=== PATIENT | male | born 1930 | race Caucasian/White ===

== ENCOUNTER → 2016-06-28 | Outpatient (REF) | payer MEDICARE, OTHER, MEDICAID ==
[2016-06-28 11:25] LABS: BLOOD UREA NITROGEN 12 MG/DL (7-18); CREATININE FOR GFR 0.86 MG/DL (0.70-1.30); GLOMERULAR FILTRATION RATE > 60.0 (>35)
== END ==
PROVIDERS: ATTEND Internal Medicine
DX: R10.30 Lower abdominal pain, unspecified (principal); R63.4 Abnormal weight loss

== ENCOUNTER → 2016-07-01 | Outpatient (CLI) | payer MEDICARE, OTHER, MEDICAID ==
[~2016-07-01] MED LIST: GASTROGRAFIN SOLUTION 30ML (Q9963) As Ordered ONE; ISOVUE-370 76% 100ML VIAL (Q9967) As Ordered ONE
--- NOTE | 2016-07-01 15:29 | REP ---
CT abdomen pelvis without and with IV contrast. With IV contrast, multiphase imaging is performed during the arterial phase of enhancement and again during the delayed equilibrium phase of enhancement. There are no comparison studies. The visualized lung barrett are unremarkable. The hepatic parenchyma, gallbladder, pancreas, spleen, adrenals and kidneys are unremarkable on all phases of the study. The bowel and mesentery are unremarkable. Pelvis: The appendix is unremarkable. The right iliac artery is quite tortuous. There is descending colon and sigmoid colon diverticulosis without diverticulitis. The bladder is unremarkable. There is no ascites or adenopathy. Half there is advanced degenerative disc disease throughout the lumbar spine. There is grade 1 wedge-shaped compression of the L1 vertebral body. Impression: Descending colon, sigmoid colon diverticulosis without diverticulitis. There is no bowel distension or obstruction. No ascites or adenopathy. There are no masses. There is lumbar scoliosis convex right, multilevel advanced lumbar spine degenerative disc disease and age indeterminate grade 1 wedge-shaped compression deformity of the L1 vertebral body. Signed by Jorge Pearson MD 07/01/2016 03:20 P
== END ==
LOC: M RAD 12:40
PROVIDERS: ATTEND Physician Assistant Medical
DX: R10.30 Lower abdominal pain, unspecified (principal); R63.4 Abnormal weight loss; K57.30 Diverticulosis of large intestine without perforation or abscess without bleeding; M41.46 Neuromuscular scoliosis, lumbar region
CPT/HCPCS: 74178; Q9963; Q9967

== ENCOUNTER → 2016-07-08 | Outpatient (REF) | payer MEDICARE, OTHER, MEDICAID ==
[~2016-07-08] MED LIST changes: +ACID1CAP PO; +ALBU17IN INH; +ANOR1AER INH; +COLA100C3 PO; +DONE1TAB3 PO; +DOXA1TAB40 PO; +FLON1SPR; +FURO20TA2 PO; -GASTROGRAFIN SOLUTION 30ML (Q9963) As Ordered ONE; +IMOD2CAP PO; -ISOVUE-370 76% 100ML VIAL (Q9967) As Ordered ONE; +LOPE2CA PO; +LOSA50TA20 PO; +MAGNSOL2 PO; +METO-346 PO; +MOBI7.5T10 PO; +NAME10TA PO; +NITR4TASL SL; +PANT40TA2 PO; +POTA10TA16 PO; +PROS5TAB PO; +STRO3TAB PO; +TUMS500C PO; +TYLE500T78 PO
== END ==
LOC: M SMT 16:57
PROVIDERS: ATTEND Nurse Practitioner Family
DX: R32 Unspecified urinary incontinence (principal)
CPT/HCPCS: 51798; 81001; 87086; G0463

== ENCOUNTER → 2016-08-11 | Outpatient (CLI) | payer MEDICARE, OTHER, MEDICAID ==
[~2016-08-11] VITALS: Ht 162.6 cm; Wt 104.3 kg
[~2016-08-11] MED LIST changes: +NS 1,000 ML IV ONE; +PROPOFOL 200 MG/20 ML VIAL As Ordered ONE; +ePHEDrine SULFATE 25 MG/5 ML(5MG/ML) SYRINGE As Ordered ONE
--- NOTE | 2016-08-11 08:23 | ROOR ---
Patient Name: Giovanny Hernández Procedure Date: 08/11/2016 8:11 AM Date of : 1930 Age: 85 Room: [facility] Gender: Male Note Status: Finalized Procedure: Upper GI endoscopy Indications: Epigastric abdominal pain, Heartburn Providers: Donaldo FRAZIER MD Referring MD: Ruby DE LA CRUZ NP Requesting Provider: Medicines: Monitored Anesthesia Care Complications: No immediate complications. Procedure: Pre-Anesthesia Assessment: - The heart rate, respiratory rate, oxygen saturations, blood pressure, adequacy of pulmonary ventilation, and response to care were monitored throughout the procedure. The Endoscope was introduced through the mouth, and advanced to the second part of duodenum. The upper GI endoscopy was accomplished without difficulty. The patient tolerated the procedure well. Findings: A large hiatal hernia was present. The esophagus was normal. The stomach was normal. The examined duodenum was normal. Impression: - Moderate to large hiatal hernia. - Normal esophagus. - Normal stomach. - Normal examined duodenum. - No specimens collected. Recommendation: - Observe patient's clinical course. - Continue present medications. Donaldo Frazier MD Donaldo FRAZIER MD 08/11/2016 8:23:11 AM This report has been signed electronically. Number of Addenda: 0 Note Initiated On: 08/11/2016 8:11 AM Estimated Blood Loss: Estimated blood loss: none.
--- NOTE | 2016-08-11 08:37 | ROOR ---
Patient Name: Giovanny Hernández Procedure Date: 08/11/2016 8:12 AM Date of : 1930 Age: 85 Room: [facility] Gender: Male Note Status: Finalized Procedure: Colonoscopy Indications: High risk colon cancer surveillance: Personal history of colonic polyps Providers: Donaldo FRAZIER MD Referring MD: Ruby DE LA CRUZ NP Requesting Provider: Medicines: Monitored Anesthesia Care Complications: No immediate complications. Procedure: Pre-Anesthesia Assessment: - The heart rate, respiratory rate, oxygen saturations, blood pressure, adequacy of pulmonary ventilation, and response to care were monitored throughout the procedure. The Colonoscope was introduced through the anus and advanced to the cecum, identified by appendiceal orifice and ileocecal valve. The colonoscopy was performed without difficulty. The patient tolerated the procedure well. The quality of the bowel preparation was good. Findings: The perianal and digital rectal examinations were normal. Internal hemorrhoids were found during retroflexion. The hemorrhoids were medium-sized. Multiple medium-mouthed diverticula were found in the sigmoid colon. The exam was otherwise without abnormality on direct and retroflexion views. Impression: - Internal hemorrhoids. - Moderate diverticulosis in the sigmoid colon. - The examination was otherwise normal on direct and retroflexion views. - No specimens collected. Recommendation: - No repeat colonoscopy due to the absence of colonic polyps. Donaldo Frazier MD Donaldo FRAZIER MD 08/11/2016 8:37:03 AM This report has been signed electronically. Number of Addenda: 0 Note Initiated On: 08/11/2016 8:12 AM Estimated Blood Loss: Estimated blood loss: none.
[2016-08-11 08:55] VITALS: BP 106/65
== END | disposition home or self-care (01) ==
LOC: M OPP 07:23
PROVIDERS: ATTEND Internal Medicine Gastroenterology
DX: R10.84 Generalized abdominal pain (principal); R19.4 Change in bowel habit; R63.4 Abnormal weight loss; K64.8 Other hemorrhoids; K57.30 Diverticulosis of large intestine without perforation or abscess without bleeding; Z86.010 Personal history of colon polyps; R10.13 Epigastric pain; R12 Heartburn; K44.9 Diaphragmatic hernia without obstruction or gangrene; F32.9 Major depressive disorder, single episode, unspecified; M19.90 Unspecified osteoarthritis, unspecified site; F03.90 Unspecified dementia, unspecified severity, without behavioral disturbance, psychotic disturbance, mood disturbance, and anxiety; N40.1 Benign prostatic hyperplasia with lower urinary tract symptoms; J44.9 Chronic obstructive pulmonary disease, unspecified; Z79.899 Other long term (current) drug therapy

== ENCOUNTER → 2016-11-21 | Outpatient (REF) | payer MEDICARE, OTHER, MEDICAID ==
[~2016-11-21] MED LIST changes: -COLA100C3 PO; +COLA100C5 PO; -DONE1TAB3 PO; +DONE1TAB62 PO; +MAGN1SOL2 PO; -MAGNSOL2 PO; +MOBI4TAB PO; -MOBI7.5T10 PO; -NS 1,000 ML IV ONE; -PROPOFOL 200 MG/20 ML VIAL As Ordered ONE; -ePHEDrine SULFATE 25 MG/5 ML(5MG/ML) SYRINGE As Ordered ONE
== END ==
LOC: M SMT 20:25
PROVIDERS: ATTEND Urology
DX: R30.0 Dysuria (principal)

== ENCOUNTER → 2017-07-14 | Outpatient (REF) | payer MEDICARE, OTHER, MEDICAID ==
[2017-07-14 10:01] LABS: HEMATOCRIT 44.2 % (42.0-52.0); HEMOGLOBIN 15.3 g/dl (13.5-17.5); MEAN CORPUSCULAR HEMOGLOBIN 31.4 pg (27.0-33.0); MEAN CORPUSCULAR HGB CONC 34.6 g/dl (32.0-36.5); MEAN CORPUSCULAR VOLUME 90.6 fl (80.0-96.0); PLATELET COUNT, AUTOMATED 162 10^3/uL (150-450); RED BLOOD COUNT 4.88 10^6/uL (4.30-6.10); WHITE BLOOD COUNT 5.1 10^3/uL (4.0-10.0)
[2017-07-14 10:37] LABS: ALBUMIN 3.7 GM/DL (3.2-5.2); ALBUMIN/GLOBULIN RATIO 1.19 (1.00-1.93); ALKALINE PHOSPHATASE 70 U/L (45-117); ALT/SGPT 23 U/L (12-78); ANION GAP 9 MEQ/L (8-16); AST/SGOT 21 U/L (7-37); BILIRUBIN,TOTAL 0.5 MG/DL (0.2-1.0); BLOOD UREA NITROGEN 18 MG/DL (7-18); CALCIUM LEVEL 8.6 MG/DL (8.8-10.2); CARBON DIOXIDE LEVEL 27 MEQ/L (21-32); CHLORIDE LEVEL 107 MEQ/L (98-107); CREATININE FOR GFR 0.91 MG/DL (0.70-1.30); GLOMERULAR FILTRATION RATE > 60.0 (>35); GLUCOSE, FASTING 98 MG/DL (70-100); POTASSIUM SERUM 4.2 MEQ/L (3.5-5.1); PSA SCREENING 0.97 NG/ML (< 4.0); SODIUM LEVEL 143 MEQ/L (136-145); TOTAL PROTEIN 6.8 GM/DL (6.4-8.2)
== END ==
DX: I10 Essential (primary) hypertension (principal); N40.0 Benign prostatic hyperplasia without lower urinary tract symptoms
CPT/HCPCS: 80053

== ENCOUNTER 2018-02-06 14:39 | Emergency (ER) | payer MEDICARE, MEDICAID, OTHER ==
[2018-02-06 15:52] LABS: BASO % 0.2 % (0.0-1.0); EOS # 0.1 10^3/uL (0.0-0.50); EOS % 2.8 % (0.0-3.0); HEMATOCRIT 42.1 % (42.0-52.0); HEMOGLOBIN 14.6 g/dl (13.5-17.5); IMMATURE GRANULOCYTE % 0.2 % (0-3.0); LYMPH # 0.6 10^3/uL (1.5-4.5); LYMPH % 12.2 % (24.0-44.0); MEAN CORPUSCULAR HEMOGLOBIN 31.3 pg (27.0-33.0); MEAN CORPUSCULAR HGB CONC 34.7 g/dl (32.0-36.5); MEAN CORPUSCULAR VOLUME 90.3 fl (80.0-96.0); MONO # 0.4 10^3/uL (0.0-0.8); MONO % 7.7 % (0.0-5.0); NEUTROPHILS # 3.6 10^3/uL (1.8-7.7); NEUTROPHILS % 76.9 % (36.0-66.0); PLATELET COUNT, AUTOMATED 135 10^3/uL (150-450); RED BLOOD COUNT 4.66 10^6/uL (4.30-6.10); RED CELL DISTRIBUTION WIDTH 13.5 % (11.5-14.5); WHITE BLOOD COUNT 4.7 10^3/uL (4.0-10.0)
[2018-02-06] MEDS: NS 500 ML IV (15:53)
[2018-02-06 16:17] LABS: ALBUMIN/GLOBULIN RATIO 1.07 (1.00-1.93); ALKALINE PHOSPHATASE 62 U/L (45-117); ALT/SGPT 18 U/L (12-78); ANION GAP 8 MEQ/L (8-16); AST/SGOT 19 U/L (7-37); BILIRUBIN,DIRECT 0.2 MG/DL (0.0-0.2); BILIRUBIN,TOTAL 0.4 MG/DL (0.2-1.0); BLOOD UREA NITROGEN 25 MG/DL (7-18); CALCIUM LEVEL 7.6 MG/DL (8.8-10.2); CARBON DIOXIDE LEVEL 28 MEQ/L (21-32); CHLORIDE LEVEL 107 MEQ/L (98-107); CPK CREATINE PHOSPHOKINASE 146 U/L (39-308); CREATININE FOR GFR 1.27 MG/DL (0.70-1.30); FREE T4 1.21 NG/DL (0.76-1.46); GLOMERULAR FILTRATION RATE 57.1 (>35); GLUCOSE, FASTING 80 MG/DL (70-100); LIPASE 83 U/L (73-393); MB/CK RELATIVE INDEX 2.26 (< OR =4); POTASSIUM SERUM 4.3 MEQ/L (3.5-5.1); SODIUM LEVEL 143 MEQ/L (136-145); THYROID STIMULATING HORMONE 0.748 uIU/ML (0.358-3.740); TOTAL PROTEIN 5.8 GM/DL (6.4-8.2); TROPONIN I < 0.02 NG/ML (< 0.10)
[2018-02-06] MEDS ORDERED: ISOVUE-370 76% 100ML VIAL (Q9967) As Ordered (17:17)
[2018-02-06 20:36] LABS: CPK CREATINE PHOSPHOKINASE 180 U/L (39-308); MB/CK RELATIVE INDEX 2.22 (< OR =4); TROPONIN I < 0.02 NG/ML (< 0.10)
== END 2018-02-06 21:37 | disposition home or self-care (01) ==
LOC: M ED 14:39
DX: R07.89 Other chest pain (principal); I10 Essential (primary) hypertension; K58.9 Irritable bowel syndrome, unspecified; G47.33 Obstructive sleep apnea (adult) (pediatric); J44.9 Chronic obstructive pulmonary disease, unspecified; F32.9 Major depressive disorder, single episode, unspecified; L89.319 Pressure ulcer of right buttock, unspecified stage; L89.329 Pressure ulcer of left buttock, unspecified stage; Z79.899 Other long term (current) drug therapy
CPT/HCPCS: Q9967

== ENCOUNTER → 2018-03-13 | Outpatient (REF) | payer MEDICARE, MEDICAID ==
[~2018-03-13] MED LIST changes: -LOSA50TA20 PO; +LOSA50TA73 PO; -PANT40TA2 PO; +PANT40TA3 PO
[2018-03-13 15:40] LABS: APPEARANCE, URINE CLEAR (CLEAR); BACTERIA, URINE AUTO NEGATIVE (NEGATIVE); BILIRUBIN, URINE AUTO NEGATIVE (NEGATIVE); BLOOD, URINE BLOOD NEGATIVE (NEGATIVE); COLOR, URINE YELLOW (YELLOW); GLUCOSE, URINE (UA) AUTO NEGATIVE (NEGATIVE); KETONE, URINE AUTO NEGATIVE (NEGATIVE); LEUKOCYTE ESTERASE, URINE AUTO NEGATIVE (NEGATIVE); MUCUS, URINE SMALL (NEGATIVE); NITRITE, URINE AUTO NEGATIVE (NEGATIVE); PROTEIN, URINE AUTO NEGATIVE (NEGATIVE); RBC, URINE AUTO 0 /HPF (0-3); SPECIFIC GRAVITY URINE AUTO 1.008 (1.002-1.035); SQUAMOUS EPITHELIAL CELL UR AU 0 /HPF (0-6); UROBILINOGEN, URINE AUTO 0.2 mg/dL (0.0-2.0); WBC, URINE AUTO 0 /HPF (0-3)
== END ==
PROVIDERS: ATTEND Nurse Practitioner Family
DX: R41.82 Altered mental status, unspecified (principal)

== ENCOUNTER → 2018-07-12 | Outpatient (REF) | payer MEDICARE, MEDICAID, OTHER ==
[~2018-07-12] MED LIST changes: -LOSA50TA73 PO; +LOSA50TA88 PO
== END ==
LOC: M SFHCPLAZ 11:46
PROVIDERS: ATTEND Family Medicine
DX: R35.0 Frequency of micturition (principal)

== ENCOUNTER → 2018-10-30 | Outpatient (REF) | payer MEDICARE, MEDICAID, OTHER | LOC: M SFHCPLAZ 19:28 | PROVIDERS: ATTEND Dermatology | DX: C44.622 Squamous cell carcinoma of skin of right upper limb, including shoulder (principal) ==

== ENCOUNTER → 2018-12-25 | Outpatient (REF) | payer MEDICARE, OTHER | LOC: M SFHCPLAZ 17:16 | PROVIDERS: ATTEND Dermatology | DX: L57.0 Actinic keratosis (principal); L57.8 Other skin changes due to chronic exposure to nonionizing radiation ==

== ENCOUNTER → 2019-01-01 | Outpatient (REF) | payer MEDICARE, OTHER, MEDICAID ==
[2019-01-01 10:51] LABS: BLOOD UREA NITROGEN 21 MG/DL (7-18); CALCIUM LEVEL 8.4 MG/DL (8.8-10.2); CARBON DIOXIDE LEVEL 31 MEQ/L (21-32); CHLORIDE LEVEL 105 MEQ/L (98-107); CREATININE FOR GFR 0.84 MG/DL (0.70-1.30); GLOMERULAR FILTRATION RATE > 60.0 (>35); GLUCOSE, FASTING 84 MG/DL (70-100); POTASSIUM SERUM 3.9 MEQ/L (3.5-5.1); SODIUM LEVEL 142 MEQ/L (136-145)
== END ==
PROVIDERS: ATTEND Family Medicine
DX: I10 Essential (primary) hypertension (principal)

== ENCOUNTER → 2019-01-07 | Outpatient (REF) | payer MEDICARE, OTHER, MEDICAID ==
[2019-01-07 19:15] LABS: MALB URINE SIEMENS 18.6 MG/L; MAU/CREAT RATIO 7.5 MCG/MG (0.0-30.0)
== END ==
LOC: M LAB REF 17:02
PROVIDERS: ATTEND Family Medicine
DX: I10 Essential (primary) hypertension (principal)

== ENCOUNTER → 2019-02-21 | Outpatient (REF) | payer MEDICARE, OTHER, MEDICAID | LOC: M LAB REF 19:06 | PROVIDERS: ATTEND Dermatology | DX: D04.5 Carcinoma in situ of skin of trunk (principal); L57.0 Actinic keratosis ==

== ENCOUNTER → 2019-05-17 | Outpatient (REF) | payer MEDICARE, OTHER, MEDICAID ==
[~2019-05-17] MED LIST changes: -DONE1TAB62 PO; +DONE1TAB64 PO
== END ==
LOC: M SFHCPLAZ 13:13
PROVIDERS: ATTEND Family Medicine
DX: R21 Rash and other nonspecific skin eruption (principal)
CPT/HCPCS: 11104; 88305; G0463

== ENCOUNTER → 2019-07-10 | Outpatient (REF) | payer MEDICARE, OTHER, MEDICAID ==
[~2019-07-10] MED LIST changes: +ACET1TAB55 PO; +APAP325T4 PO; +DOXA1TAB67 PO; +FINA5TAB2 PO; +FLON1SPR NARES; +HM A5TAB4 PO; +HYDROIN11 TOP; +KLOR10TA76 PO; +LOPE2TAB12 PO; +LORA-243 PO; +LOSA25TA14 PO; +MEMA10TA19 PO; +METO1TAB87 PO; +MILKSUS3 PO; +MIRA3350 PO; +MYRB50TA PO; +NYST10006 TOP; +PANT-23 PO; +PANT40TA29 PO; -PANT40TA3 PO; +REFR0.5D8 OU; +VENTAER INH
[2019-07-10 14:58] LABS: BLOOD UREA NITROGEN 19 MG/DL (7-18); CALCIUM LEVEL 8.5 MG/DL (8.8-10.2); CARBON DIOXIDE LEVEL 31 MEQ/L (21-32); CHLORIDE LEVEL 107 MEQ/L (98-107); GLOMERULAR FILTRATION RATE > 60.0 (>35); GLUCOSE, FASTING 93 MG/DL (70-100); POTASSIUM SERUM 4.2 MEQ/L (3.5-5.1); SODIUM LEVEL 141 MEQ/L (136-145)
== END ==
LOC: EDBD → M SFHCPLAZ 10:40
PROVIDERS: ATTEND Family Medicine
DX: I10 Essential (primary) hypertension (principal)
CPT/HCPCS: 36415; 80048; G0463

== ENCOUNTER → 2019-10-15 | Outpatient (REF) | payer MEDICARE, OTHER, MEDICAID ==
[~2019-10-15] MED LIST changes: -ACET1TAB55 PO; -APAP325T4 PO; -DOXA1TAB67 PO; -FINA5TAB2 PO; -FLON1SPR NARES; -HM A5TAB4 PO; -HYDROIN11 TOP; -KLOR10TA76 PO; -LOPE2TAB12 PO; -LORA-243 PO; -LOSA25TA14 PO; -MEMA10TA19 PO; -METO1TAB87 PO; -MILKSUS3 PO; -MIRA3350 PO; -MYRB50TA PO; -NYST10006 TOP; -PANT-23 PO; -REFR0.5D8 OU; -VENTAER INH
== END ==
LOC: EDBD → M LAB REF 10:41
PROVIDERS: ATTEND Dermatology
DX: C44.320 Squamous cell carcinoma of skin of unspecified parts of face (principal)
CPT/HCPCS: 11102; 17000; 17003; 88305; G0463

== ENCOUNTER → 2020-01-10 | Outpatient (REF) | payer MEDICARE, OTHER, MEDICAID ==
[2020-01-10 10:57] LABS: BLOOD UREA NITROGEN 23 MG/DL (7-18); CALCIUM LEVEL 8.4 MG/DL (8.8-10.2); CARBON DIOXIDE LEVEL 31 MEQ/L (21-32); CHLORIDE LEVEL 109 MEQ/L (98-107); CREATININE FOR GFR 0.86 MG/DL (0.70-1.30); GLOMERULAR FILTRATION RATE > 60.0 (>35); GLUCOSE, FASTING 89 MG/DL (70-100); POTASSIUM SERUM 4.6 MEQ/L (3.5-5.1); SODIUM LEVEL 144 MEQ/L (136-145)
== END ==
PROVIDERS: ATTEND Family Medicine
DX: I10 Essential (primary) hypertension (principal)

== ENCOUNTER → 2020-01-29 | Outpatient (REF) ==
[~2020-01-29] MED LIST changes: +ACET1TAB55 PO; +APAP325T4 PO; +DOXA1TAB67 PO; +FINA5TAB2 PO; +FLON1SPR NARES; +HM A5TAB4 PO; +HYDROIN11 TOP; +KLOR10TA76 PO; +LOPE2TAB12 PO; +LORA-243 PO; +LOSA25TA14 PO; +MEMA10TA19 PO; +METO1TAB87 PO; +MILKSUS3 PO; +MIRA3350 PO; +MYRB50TA PO; +NYST10006 TOP; +PANT-23 PO; +REFR0.5D8 OU; +VENTAER INH
== END ==
LOC: EDBD → MERGE 01-28 11:27 → SKLAB2 01-28 11:27 → EDSTATUS 02-25 10:30
PROVIDERS: ATTEND Internal Medicine
DX: Z20.828 Contact with and (suspected) exposure to other viral communicable diseases (principal)

== ENCOUNTER → 2020-02-05 | Outpatient (REF) | LOC: SKLAB2 08:00 | DX: Z20.828 Contact with and (suspected) exposure to other viral communicable diseases (principal) ==

== ENCOUNTER → 2020-02-12 | Outpatient (REF) | LOC: SKLAB2 08:00 | DX: Z20.828 Contact with and (suspected) exposure to other viral communicable diseases (principal) ==

== ENCOUNTER → 2020-02-18 | Outpatient (REF) | payer MEDICARE, OTHER, MEDICAID ==
[2020-02-18 13:46] LABS: HEMATOCRIT 45.3 % (42.0-52.0); HEMOGLOBIN 14.6 g/dl (13.5-17.5); MEAN CORPUSCULAR HEMOGLOBIN 30.3 pg (27.0-33.0); MEAN CORPUSCULAR HGB CONC 32.2 g/dl (32.0-36.5); PLATELET COUNT, AUTOMATED 128 10^3/uL (150-450); RED BLOOD COUNT 4.82 10^6/uL (4.30-6.10); WHITE BLOOD COUNT 4.8 10^3/uL (4.0-10.0)
[2020-02-18 14:20] LABS: BLOOD UREA NITROGEN 16 MG/DL (7-18); CALCIUM LEVEL 8.9 MG/DL (8.8-10.2); CARBON DIOXIDE LEVEL 31 MEQ/L (21-32); CHLORIDE LEVEL 105 MEQ/L (98-107); CREATININE FOR GFR 0.91 MG/DL (0.70-1.30); GLOMERULAR FILTRATION RATE > 60.0 (>35); GLUCOSE, FASTING 121 MG/DL (70-100); POTASSIUM SERUM 4.3 MEQ/L (3.5-5.1); SODIUM LEVEL 139 MEQ/L (136-145)
== END ==
LOC: EDBD → SKLAB2 08:25 → MERGE 08:25
DX: I10 Essential (primary) hypertension (principal)

== ENCOUNTER → 2020-02-19 | Outpatient (REF) | payer MEDICARE, OTHER, MEDICAID | LOC: EDBD → SKLAB2 07:35 → MERGE 13:15 | DX: Z20.828 Contact with and (suspected) exposure to other viral communicable diseases (principal) ==

== ENCOUNTER → 2020-02-26 | Outpatient (REF) | payer MEDICARE, OTHER, MEDICAID | LOC: SKLAB2 11:30 | DX: Z20.828 Contact with and (suspected) exposure to other viral communicable diseases (principal) ==

== ENCOUNTER → 2020-03-04 | Outpatient (REF) | payer MEDICARE, OTHER, MEDICAID | LOC: SKLAB2 08:06 | DX: Z20.828 Contact with and (suspected) exposure to other viral communicable diseases (principal) ==

== ENCOUNTER → 2020-03-11 | Outpatient (REF) | payer MEDICARE, OTHER, MEDICAID | LOC: SKLAB2 10:15 | DX: Z20.828 Contact with and (suspected) exposure to other viral communicable diseases (principal) ==

== ENCOUNTER → 2020-03-16 | Outpatient (REF) | payer MEDICARE, OTHER, MEDICAID ==
--- NOTE | 2020-03-16 23:37 | ECGEPIP ---
[facility] Test Date: 2020-03-16 Pat Name: BEKAH YOUNG Department: Room: - Gender: Male Computer Operator: ELMER : 1930 Requested By: Emily Yang Order Number: [id number] Reading MD: Valerio Raya Measurements Intervals [place] Rate: 75 P: 90 AK: 185 QRS: -42 QRSD: 112 T: 63 QT: 401 QTc: 450 Interpretive Statements SINUS RHYTHM WITH OCCASIONAL SUPRAVENTRICULAR PREMATURE COMPLEXES MARKED LEFT AXIS DEVIATION INCOMPLETE RIGHT BUNDLE BRANCH BLOCK NONSPECIFIC T-WAVE ABNORMALITY Compared to prior tracings(2) in the system, no significant changes Electronically Signed on 03-16-2020 23:37:11 EST by Valerio Raya
== END ==
LOC: SKLAB2 08:25
DX: R00.8 Other abnormalities of heart beat (principal)

== ENCOUNTER → 2020-03-17 | Outpatient (REF) | payer MEDICARE, OTHER, MEDICAID ==
[2020-03-17 11:02] LABS: HEMOGLOBIN A1c 5.3 %
[2020-03-17 11:22] LABS: VITAMIN B12 LEVEL 551 PG/ML (247-911)
== END ==
LOC: SKLAB7 07:00
DX: F03.90 Unspecified dementia, unspecified severity, without behavioral disturbance, psychotic disturbance, mood disturbance, and anxiety (principal); R73.09 Other abnormal glucose; Z79.899 Other long term (current) drug therapy

== ENCOUNTER → 2020-03-18 | Outpatient (REF) | payer MEDICARE, OTHER, MEDICAID | LOC: SKLAB2 07:00 | PROVIDERS: ATTEND Internal Medicine | DX: Z11.52 Encounter for screening for COVID-19 (principal) ==

== ENCOUNTER → 2020-03-25 | Outpatient (REF) | payer MEDICARE, OTHER, MEDICAID | LOC: SKLAB2 07:00 | PROVIDERS: ATTEND Internal Medicine | DX: Z20.822 Contact with and (suspected) exposure to COVID-19 (principal) ==

== ENCOUNTER → 2020-04-01 | Outpatient (REF) | payer MEDICARE, OTHER, MEDICAID | LOC: SKLAB2 07:00 | PROVIDERS: ATTEND Internal Medicine | DX: Z20.822 Contact with and (suspected) exposure to COVID-19 (principal) ==

== ENCOUNTER → 2020-04-08 | Outpatient (REF) | payer MEDICARE, OTHER, MEDICAID | LOC: SKLAB2 13:57 | PROVIDERS: ATTEND Internal Medicine | DX: Z20.822 Contact with and (suspected) exposure to COVID-19 (principal) ==

== ENCOUNTER → 2020-04-15 | Outpatient (REF) | payer MEDICARE, OTHER, MEDICAID | LOC: SKLAB2 10:33 | PROVIDERS: ATTEND Internal Medicine | DX: Z11.52 Encounter for screening for COVID-19 (principal) ==

== ENCOUNTER → 2020-04-22 | Outpatient (REF) | payer MEDICARE, OTHER, MEDICAID | LOC: SKLAB2 10:54 | PROVIDERS: ATTEND Internal Medicine | DX: Z20.822 Contact with and (suspected) exposure to COVID-19 (principal) ==

== ENCOUNTER → 2020-04-29 | Outpatient (REF) | payer MEDICARE, OTHER, MEDICAID | LOC: SKLAB2 08:10 | PROVIDERS: ATTEND Internal Medicine | DX: Z20.822 Contact with and (suspected) exposure to COVID-19 (principal) ==

== ENCOUNTER → 2020-05-06 | Outpatient (REF) | payer MEDICARE, OTHER, MEDICAID | LOC: SKLAB2 09:26 | PROVIDERS: ATTEND Internal Medicine | DX: Z20.822 Contact with and (suspected) exposure to COVID-19 (principal) ==

== ENCOUNTER → 2020-05-20 | Outpatient (REF) | payer MEDICARE, OTHER, MEDICAID | LOC: SKLAB2 08:00 | PROVIDERS: ATTEND Internal Medicine | DX: Z11.52 Encounter for screening for COVID-19 (principal) ==

== ENCOUNTER → 2020-05-27 | Outpatient (REF) | payer MEDICARE, OTHER, MEDICAID | LOC: SKLAB2 10:31 | PROVIDERS: ATTEND Internal Medicine | DX: Z20.822 Contact with and (suspected) exposure to COVID-19 (principal) ==

== ENCOUNTER → 2020-06-12 | Outpatient (REF) | payer MEDICARE, OTHER, MEDICAID | LOC: SKLAB2 15:12 | PROVIDERS: ATTEND Internal Medicine | DX: Z20.822 Contact with and (suspected) exposure to COVID-19 (principal) ==

== ENCOUNTER → 2020-07-21 | Outpatient (REF) | payer MEDICARE, OTHER, MEDICAID ==
[~2020-07-21] MED LIST changes: -HM A5TAB4 PO; +LACT1TAB9 PO
[2020-07-21 08:51] LABS: HEMATOCRIT 46.3 % (42.0-52.0); HEMOGLOBIN 15.2 g/dl (13.5-17.5); MEAN CORPUSCULAR HEMOGLOBIN 30.6 pg (27.0-33.0); MEAN CORPUSCULAR HGB CONC 32.8 g/dl (32.0-36.5); MEAN CORPUSCULAR VOLUME 93.3 fl (80.0-96.0); PLATELET COUNT, AUTOMATED 163 10^3/uL (150-450); RED BLOOD COUNT 4.96 10^6/uL (4.30-6.10); WHITE BLOOD COUNT 5.4 10^3/uL (4.0-10.0)
[2020-07-21 09:14] LABS: ALBUMIN 3.6 GM/DL (3.2-5.2); ALT/SGPT 19 U/L (12-78); BILIRUBIN,TOTAL 0.6 MG/DL (0.2-1.0); BLOOD UREA NITROGEN 12 MG/DL (7-18); CALCIUM LEVEL 8.9 MG/DL (8.8-10.2); CARBON DIOXIDE LEVEL 32 MEQ/L (21-32); CHLORIDE LEVEL 106 MEQ/L (98-107); CREATININE FOR GFR 0.77 MG/DL (0.70-1.30); GLOMERULAR FILTRATION RATE > 60.0 (>35); GLUCOSE, FASTING 78 MG/DL (70-100); SODIUM LEVEL 141 MEQ/L (136-145); TOTAL PROTEIN 6.6 GM/DL (6.4-8.2)
== END ==
LOC: SKLAB2 11:49
DX: F03.90 Unspecified dementia, unspecified severity, without behavioral disturbance, psychotic disturbance, mood disturbance, and anxiety (principal); I10 Essential (primary) hypertension

== ENCOUNTER → 2020-08-27 | Outpatient (REF) | payer MEDICARE, OTHER, MEDICAID ==
[2020-08-27 10:11] LABS: BLOOD UREA NITROGEN 18 MG/DL (7-18); CALCIUM LEVEL 8.8 MG/DL (8.8-10.2); CARBON DIOXIDE LEVEL 30 MEQ/L (21-32); CHLORIDE LEVEL 106 MEQ/L (98-107); CREATININE FOR GFR 0.77 MG/DL (0.70-1.30); GLOMERULAR FILTRATION RATE > 60.0 (>35); GLUCOSE, FASTING 72 MG/DL (70-100); SODIUM LEVEL 141 MEQ/L (136-145)
== END ==
LOC: SKLAB8 07:00
DX: R60.9 Edema, unspecified (principal)

== ENCOUNTER → 2020-09-17 | Outpatient (REF) | payer MEDICARE, OTHER, MEDICAID ==
[~2020-09-17] MED LIST changes: -KLOR10TA76 PO; +LOSA25TA13 PO; -LOSA25TA14 PO; +LOSA50TA28 PO; -LOSA50TA88 PO; +POTA-136 PO; +POTA-149 PO; -POTA10TA16 PO
[2020-09-17 12:02] LABS: BLOOD UREA NITROGEN 14 MG/DL (7-18); CALCIUM LEVEL 8.3 MG/DL (8.8-10.2); CARBON DIOXIDE LEVEL 33 MEQ/L (21-32); CHLORIDE LEVEL 104 MEQ/L (98-107); CREATININE FOR GFR 0.62 MG/DL (0.70-1.30); GLOMERULAR FILTRATION RATE > 60.0 (>35); GLUCOSE, FASTING 80 MG/DL (70-100); NT-PRO BNP 246 PG/ML (<450); POTASSIUM SERUM 4.1 MEQ/L (3.5-5.1); SODIUM LEVEL 139 MEQ/L (136-145)
== END ==
LOC: SKLAB8 10:35
DX: R60.9 Edema, unspecified (principal)